=== PATIENT | female | born 1975 | race Caucasian/White ===

== ENCOUNTER 2020-06-09 08:17 | Day surgery (SDC) | payer OTHER, SELFPAY ==
[2020-06-09] VITALS (14 sets, daily range): BP systolic 92–157; BP diastolic 60–95; PULSE 16–106; RESP 12–20; TEMP 36.5–37; O2SAT 94–100; BMI 44.4
--- NOTE | ~2020-06-09 | CT_ITS ---
EXAMINATION: CT abdomen pelvis w con DATE: 06/09/2020 10:00 INDICATION: Right lower quadrant abdominal pain. Nausea. TECHNIQUE: Computed tomography (CT) of the abdomen and pelvis was performed with 100 mL Omnipaque 350 intravenous contrast. Automated exposure control and iterative reconstruction technique were employe d. The dose-length product was 1595.30 mGy-cm. COMPARISON: None. FINDINGS: The visualized portions of the lung bases demonstrate mild atelectasis. No pleural effusion . The heart size is normal. No pericardial effusion. The liver and spleen are normal. The gallbladder is distended and contains gallstones. Gallbladder wall thickening and pericholecystic fat stranding are seen. These findings are consistent with acute cholecystitis. The pancreas, adrenal glands, and k idneys are normal. There are no dilated loops of bowel. The appendix is normal. There is a small volu me of pelvic ascites, which may be physiologic. There is mild periportal lymphadenopathy, likely reac tive. There is mild thoracolumbar spondylosis. IMPRESSION: 1. Acute cholecystitis. Reviewed, dictated and finalized at location A. RIAL LISTER IMPRESSION: 1. Acute cholecystitis.
--- NOTE | ~2020-06-09 | US_ITS ---
US right upper quadrant INDICATION: Right upper quadrant pain. Gallstones. PROCEDURE: Realtime right upper abdominal ultrasound. COMPARISON: No prior studies for comparison. FINDINGS: The pancreas is normal without focal mass or pancreatic ductal dilation. Liver echotexture is increased, consistent with fatty infiltration. There is normal directional flow in the portal ve in. There are gallstones. No gallbladder wall thickening or pericholecystic fluid. Common bile duct ayah ures 6.7 mm. No sonographic Santiago's sign. IMPRESSION: 1: Cholelithiasis. 2: Fatty infiltration of the liver. Reviewed, dictated and finalized at location B. OLOGIST TECHNOLOGIST
[2020-06-09 09:08] LABS: Basophils Absolute Auto 0.1 K/mm3 (0.0-0.1); Basophils Percent Auto 0.5 % (0.2-1.2); Eosinophils Absolute Auto 0.2 K/mm3 (0-0.3); Hematocrit 43.1 % (37.0-47.0); Immature Granulocyte Absolute 0.11 K/mm3 (0.00-0.031); Immature Granulocyte Percent A 0.7 % (0-0.5); Lymphocytes Absolute Auto 1.29 K/mm3 (0.9-3.2); Lymphocytes Percent Auto 8.4 % (18.3-44.2); Mean Corpuscular HGB Conc 34.8 g/dl (32-36); Mean Corpuscular Hemoglobin 30.3 pg (26-34); Mean Corpuscular Volume 87.1 fl (80-100); Mean Platelet Volume 10.4 fl (7.4-10.4); Monocytes Absolute Auto 1.1 K/mm3 (0.1-0.6); Monocytes Percent Auto 7.4 % (2.6-8.5); Neutrophils Absolute Auto 12.6 K/mm3 (1.3-6.7); Platelet Count Result 308 k/mm3 (150-375); Red Blood Count 4.95 M/mm3 (4.2-5.4); Red Cell Distribution Width 11.7 % (11.5-14.5); White Blood Count 15.4 K/mm3 (4.5-10.0)
[2020-06-09 09:14] LABS: Add Urine Microscopic? YES; Appearance Urine Clear (Clear); Bilirubin Urine Negative (Negative); Blood Urine Negative (Negative); Color Urine Yellow (Yellow); Glucose Urine UA 3+ mg/dL (Negative); Ketones Urine Trace mg/dL (Negative); Leukocyte Esterase Ur Negative LEU/UL (Negative); Mucus Urine Heavy /lpf; Nitrate Urine Negative (Negative); Protein Urine 1+ mg/dL (Negative); RBC Urine 0-2 /hpf (0-2); Specific Grav Ur 1.037 (1.001-1.035); Squamous Epithelial Cell Urine Many /hpf (Few); Urobilinogen Urine Negative mg/dL (<2.0); WBC Urine 0-3 /hpf
[2020-06-09 09:18] LABS: Alanine Aminotransferase 31 U/L (4-35); Albumin Level 3.9 g/dL (3.5-5.1); Alkaline Phosphatase 105 U/L (38-126); Anion Gap 9 mmol/L (8-16); Aspartate Amino Transferase 24 U/L (14-36); Bilirubin,Total 0.8 mg/dL (0.2-1.3); Blood Urea Nitrogen 13 mg/dL (7-17); Calcium 9.2 mg/dL (8.4-10.2); Carbon Dioxide 27 mmol/L (22-30); Chloride 97 mmol/L (98-107); Estimated CRCL calculation 201 ml/min; Estimated Glomerular Filt Rate > 60; Glucose 297 mg/dL (65-105); Lipase 42 U/L (23-300); Potassium 4.1 mmol/L (3.4-5.0); Sodium 133 mmol/L (137-145)
[2020-06-09] MEDS: FAMOTIDINE 20 MG/2 ML VIAL IV PUSH (09:46)
--- NOTE | 2020-06-09 09:55 | ED.GENADULT ---
HPI - General Adult General Chief complaint: Abdominal Pain Stated complaint: abd pain Time Seen by Provider: 06/09/20 09:12 Source: patient Mode of arrival: ambulatory Limitations: no limitations History of Present Illness HPI narrative: Patient is a 44-year-old who presents to emergency department for evaluation of periumbilical abdominal pain starting that radiates to the right lower quadrant denies similar occurrence in the past has not taken anything for her symptoms patient notes that she has slight nausea with eating patient denies vaginal urinary or upper respiratory symptoms patient has not been seen for this complaint nor has she had similar occurrence in the past patient thought she might be constipated and took a stool softener and had a normal bowel movement without resolution of symptoms prior to Related Data Home Medications Medication Instructions Recorded Confirmed No Home Medications 06/09/20 06/09/20 Allergies Allergy/AdvReac Type Severity Reaction Status Date / Time No Known Allergies Allergy Verified 06/09/20 09:18 Review of Systems Review of Systems: All systems reviewed & are unremarkable except as noted in HPI and below PMFSH Past Medical History Medical History (Updated 06/09/20 @ 10:56 by Andrez Carty PA-C) Diabetes mellitus Obesity Family History Family History (Updated 11/04/16 @ 13:09 by DOCTOR UNKNOWN) Mother Diabetes mellitus Grandparent Diabetes mellitus Family history of malignant neoplasm of ovary Father Hypertension Family history of cardiovascular disease Social History Social History (Updated 06/09/20 @ 09:59 by Andrez Carty PA-C) Smoking status: Current every day smoker Gender identity (if verbalized by the patient): Female Exam Narrative: Exam Narrative: GENERAL: Well-appearing, obese, and in no acute distress. HEAD: Normocephalic, atraumatic. EYES: PERRLA and EOMI. ENT: Nares clear, no rhinorrhea or epistaxis. Mucous membranes moist. CHEST: Clear to auscultation. No respiratory distress. No wheezes rales or rhonchi HEART: Regular rate and rhythm. No murmur heard. Normal peripheral pulses. ABDOMEN: Soft, periumbilical and right lower quadrant tenderness to palpation, nondistended, normal active bowel sounds. EXTREMITIES: Normal range of motion. No edema. SKIN: Warm, dry, no rash. NEURO: No focal deficits. Alert and oriented x3. Cranial nerves II through XII grossly intact. Normal speech and gait PSYCH: Normal mood and affect. Course Course Emergency Course: Patient found to have acute cholecystitis in the room afebrile nontoxic-appearing no distress patient refused Tylenol or pain medication at this time patient aware of discussion with general surgery Consultations Consultation #1: Discussed case with general surgery who will take the patient to the OR does not recommend antibiotics at this time Date: 06/09/20 Time: 10:55 Vital Signs Vital signs: Vital Signs Temperature 98.3 F 06/09/20 08:33 Pulse Rate 106 H 06/09/20 08:33 Respiratory Rate 16 06/09/20 08:33 Blood Pressure 147/93 H 06/09/20 08:33 Pulse Oximetry 100 06/09/20 08:33 Temperature 98.3 F 06/09/20 08:33 Pulse Rate 93 06/09/20 09:05 Respiratory Rate 16 06/09/20 09:05 Blood Pressure 127/85 06/09/20 09:05 Pulse Oximetry 100 06/09/20 09:05 Medical Decision Making [facility] Narrative Medical decision making narrative: Patient in the room no distress aware of case findings treatment plan diagnosis found to have acute cholecystitis will be taken to the OR. Vital Signs Vital Signs: Vital Signs Temperature 98.3 F 06/09/20 08:33 Pulse Rate 106 H 06/09/20 08:33 Respiratory Rate 16 06/09/20 08:33 Blood Pressure 147/93 H 06/09/20 08:33 Pulse Oximetry 100 06/09/20 08:33 Temperature 98.3 F 06/09/20 08:33 Pulse Rate 93 06/09/20 09:05 Respiratory Rate 16 06/09/20 09:05 Blood Pressure 127/85 06/09/20 09:0
[2020-06-09] MEDS: SODIUM CHLORIDE 0.9% IV 1,000 ML 999 ML IV CONT (10:02)
--- NOTE | 2020-06-09 10:02 | PC.NURSE ---
Pt declines Zofran and acetaminophen at this time. Pt states pain level 5/10 tolerable and states does not need nausea medications at this time
[2020-06-09 11:19] LABS: Hemoglobin A1C 11.4 % (<5.7)
--- NOTE | 2020-06-09 11:30 | PC.NURSE ---
Report called to IMAGERR[facility].
--- NOTE | 2020-06-09 11:43 | PM.IMHP ---
H&P: HPI History of Present Illness Date/Time: 06/09/20 11:43 Chief complaint: abd pain Narrative: Gloria Ge is a 44 year old female Who presented to the emergency department with abdominal pain that started 4 days ago. She states that on morning she began having some pain after eating. Her pain continued throughout the day and has persisted off and on for the past 4 days. Her pain was more persistent today and she felt like she could not handle it anymore therefore she presented to the emergency department. She has had some nausea but denies any fevers or chills. She has not eaten anything today. She has never experienced pains like this in the past. She does have a history of diabetes, but has not been on medications for more than 6 months and does not have a current primary care provider. Review of Systems Review of Systems: All systems reviewed & are unremarkable except as noted in HPI and below Constitutional: Constitutional: Denies chills and Denies fever(s) Eyes: Eyes: Denies change in vision ENT: Denies hearing loss, Denies neck pain and Denies sore throat Cardiovascular: Cardiovascular: Denies chest pain and Denies dyspnea Respiratory: Respiratory: Denies cough, Denies dyspnea and Denies wheezing Gastrointestinal: Gastrointestinal: Reports as per HPI Genitourinary: Genitourinary: Denies hematuria and Denies dysuria Musculoskeletal: Musculoskeletal: Denies arthralgias, Denies joint swelling and Denies neck pain Allergic/Immunologic: Allergic/Immunologic: Denies wheezing PMFSH Past Medical History Medical History (Updated 06/09/20 @ 11:49 by Dom Betancourt DO) Diabetes mellitus Hypertension, essential, benign Obesity Family History Family History Mother Diabetes mellitus Grandparent Diabetes mellitus Family history of malignant neoplasm of ovary Father Hypertension Family history of cardiovascular disease Social History Social History (Updated 06/09/20 @ 11:47 by Dom Betancourt DO) Smoking packs per day: 0.5 Smoking cigarettes per day: 10.0 Smoking status: Current every day smoker Tobacco type: cigarettes Alcohol intake: never Substance use: never Additional occupation/education comments: [employer] Gender identity (if verbalized by the patient): Female Meds Home Medications and Allergies Home Medications Medication Instructions Recorded Confirmed Type No Home Medications 06/09/20 06/09/20 History Allergies Allergy/AdvReac Type Severity Reaction Status Date / Time No Known Allergies Allergy Verified 06/09/20 09:18 Vital Signs Vital Signs - 24 hr 06/09/20 08:33 06/09/20 09:05 06/09/20 11:00 Temperature 36.8 C 36.9 C Pulse Rate 106 H 93 16 L Respiratory Rate 16 16 16 Blood Pressure 147/93 H 127/85 155/95 H Pulse Oximetry 100 100 100 06/09/20 11:34 Temperature 36.7 C Pulse Rate 92 Respiratory Rate 18 Blood Pressure 149/91 H Pulse Oximetry 99 Exam Const: General: alert; No acute distress Orientation/consciousness: patient oriented x3 Limitations: no limitations HENMT: Head: normocephalic and atraumatic Ears: hearing grossly normal bilaterally General nose exam: Normal external nose present and Normal nares present Mouth: Yes Normal oral and palatal mucosa present and Yes moist mucous membranes Eyes: General: appearance normal, both eyes and all related structures Conjunctivae: conjunctivae normal Sclera: sclerae normal Pupils: Equal, round and reactive pupils present EOM: EOMs intact bilaterally Neck: Neck: normal visual inspection, full ROM, no lymphadenopathy, supple and no JVD Lymphatic: no lymphadenopathy noted Chest: Chest palpation & inspection: normal inspection of the chest Resp: Effort & Inspection: normal respiratory effort and able to speak in complete sentences Auscultation: clear to auscultation bilaterally Perc
--- NOTE | 2020-06-09 11:51 | WPDHPUPDATE1 ---
History and Physical Update Update Date/Time: 06/09/20 11:51 History and Physical has been reviewed, including an updated exam of the patient. There are NO changes in the patient's condition. Risks, benefits, and alternatives have been discussed and questions answered. Patient agrees to proceed with procedure.
--- NOTE | 2020-06-09 11:58 | WPDANESEPPF ---
Anes - Initial Pre Proc Eval Procedure: Operation Date: 06/09/20 13:15 Proposed Procedures p Laparoscopic Cholecystectomy, Possible Open, Possible Intraoperative Cholangiogram - Dom Betancourt DO Date/Time: 06/09/20 11:58 Surgeon: Dom Betancourt DO Pre Op Diagnosis: abd pain Patient Data Age: 44 Gender: F Height: 5 ft 6 in Weight: 125 kg Last Vital Signs Temp 36.7 C 06/09/20 11:34 Pulse 92 06/09/20 11:34 Resp 18 06/09/20 11:34 BP 149/91 H 06/09/20 11:34 Pulse Ox 99 06/09/20 11:34 Allergies Allergy/AdvReac Type Severity Reaction Status Date / Time No Known Allergies Allergy Verified 06/09/20 11:52 Home Medications Medication Instructions Recorded Confirmed Type No Home Medications 06/09/20 06/09/20 History Laboratory Tests 06/09/20 06/09/20 06/09/20 08:58 08:58 08:58 WBC 15.4 K/mm3 H K/mm3 (4.5-10.0) RBC 4.95 M/mm3 M/mm3 (4.2-5.4) Hgb 15.0 g/dL g/dL (12.0-15.0) Hct 43.1 % % (37.0-47.0) MCV 87.1 fl fl (80-100) MCH 30.3 pg pg (26-34) MCHC 34.8 g/dl g/dl (32-36) RDW 11.7 % % (11.5-14.5) Plt Count 308 k/mm3 k/mm3 (150-375) MPV 10.4 fl fl (7.4-10.4) Immature Gran % (Auto) 0.7 % H % (0-0.5) Neut % (Auto) 82.0 % H % (45.5-73.1) Lymph % (Auto) 8.4 % L % (18.3-44.2) [place] % (Auto) 7.4 % % (2.6-8.5) Eos % (Auto) 1.0 % % (0-4.4) Baso % (Auto) 0.5 % % (0.2-1.2) Lymph # (Auto) 1.29 K/mm3 K/mm3 (0.9-3.2) [place] # (Auto) 1.1 K/mm3 H K/mm3 (0.1-0.6) Eos # (Auto) 0.2 K/mm3 K/mm3 (0-0.3) Baso # (Auto) 0.1 K/mm3 K/mm3 (0.0-0.1) Abs Immat Gran (auto) 0.11 K/mm3 H K/mm3 (0.00-0.031) Absolute Neuts (auto) 12.6 K/mm3 H K/mm3 (1.3-6.7) Absolute Nucleated RBC 0.0 K/mm3 K/mm3 (0.0-0.012) Nucleated RBC % 0.0 % % (0.0-0.2) Sodium 133 mmol/L L mmol/L (137-145) Potassium 4.1 mmol/L mmol/L (3.4-5.0) Chloride 97 mmol/L L mmol/L (98-107) Carbon Dioxide 27 mmol/L mmol/L (22-30) Anion Gap 9 mmol/L mmol/L (8-16) BUN 13 mg/dL mg/dL (7-17) Creatinine 0.40 mg/dL L mg/dL (0.7-1.0) Estim Creat Clear Calc 201 ml/min ml/min Estimated GFR > 60 (59 - ) Glucose 297 mg/dL H mg/dL (65-105) Hemoglobin A1c 11.4 % H % (<5.7) Calcium 9.2 mg/dL mg/dL (8.4-10.2) Total Bilirubin 0.8 mg/dL mg/dL (0.2-1.3) AST 24 U/L U/L (14-36) ALT 31 U/L U/L (4-35) Alkaline Phosphatase 105 U/L U/L (38-126) Total Protein 8.0 g/dL g/dL (6.3-8.2) Albumin 3.9 g/dL g/dL (3.5-5.1) Lipase 42 U/L U/L (23-300) Urine Color Urine Appearance Urine pH Ur Specific [place] Urine Protein Urine Glucose (UA) Urine Ketones Ur Blood (Man) Urine Nitrate Urine Bilirubin Urine Urobilinogen Leukocyte Esterase Rfl Urine RBC Urine WBC Ur Squamous Epith Cells Hyaline Casts Urine Mucus 06/09/20 09:04 WBC RBC Hgb Hct MCV MCH MCHC RDW Plt Count MPV Immature Gran % (Auto) Neut % (Auto) Lymph % (Auto) [place] % (Auto) Eos % (Auto) Baso % (Auto) Lymph # (Auto) [place] # (Auto) Eos # (Auto) Baso # (Auto) Abs Immat Gran (auto) Absolute Neuts (auto) Absolute Nucleated RBC Nucleated RBC % Sodium Potassium Chloride Carbon Dioxide Anion Gap BUN Creatinine Estim Cre
[2020-06-09] MEDS: LACTATED RINGERS 1,000 ML 30 ML IV CONT ×2 (12:08→15:04)
[2020-06-09 12:26] LABS: Glucose Point of Care 230 (65-105)
[2020-06-09] MEDS: ceFAZolin 3 GM/D5W 100 ML 100 ML IVPB (13:25)
--- NOTE | 2020-06-09 15:00 | PM.PROC ---
Procedure Note - Detailed Date of procedure: 06/09/20 Pre-op diagnosis: Acute/chronic calculous cholecystitis Post-op diagnosis: same Procedure performed: Laparoscopic Cholecystectomy Description of procedure: Procedure as well as risks, benefits, and alternatives were discussed with patient. Written consent was obtained and placed in chart prior to procedure. The patient was brought back to surgical suite. Patient was placed in supine position on operating table. Time-out was done to confirm patient and procedure. Patient was then intubated by the anesthesia department. Abdomen was prepped and draped in sterile fashion using chlorhexidine prep. 0.25% bupivacaine with epinephrine was infiltrated at each site of incision. A 5 millimeter incision was made near the umbilicus, and a 5 millimeter Optiview trocar was advanced through the abdominal layers under direct visualization. Once inside the abdominal cavity, carbon dioxide was insufflated to create a pneumoperitoneum. The camera was inserted and the abdomen was inspected. No immediate abnormalities were identified. The patient was placed in reverse Trendelenburg position and rotated slightly to the left. An 11 millimeter incision was made in the subxiphoid region, and an 11 millimeter trocar was inserted under direct visualization. Two 5 millimeter incisions were made in the right upper quadrant, and two 5 millimeter trocars were inserted under direct visualization. The gallbladder was identified and grasped at the fundus and retracted superiorly. It was then grasped at the infundibulum retracted laterally. Careful dissection around the neck of the gallbladder was performed using blunt dissection with a [place] grasper and hook electrocautery. The cystic duct was identified, and a window was created behind it. The cystic artery was also identified and a window was created behind it. The critical view of safety was identified, visualizing the cystic duct running directly into the neck of the gallbladder, and the cystic artery running directly into the wall of the gallbladder. A 5 millimeter clip print developer automatic was then used to place 2 clips proximally and 1 clip distally on both the cystic duct and cystic artery. They were then both transected using endoscopic scissors. Once safely away from the gold hepatitis, the gallbladder was dissected free from the liver bed using hook electrocautery. Hemostasis was achieved along the way. The gallbladder was removed completely and then removed through the subxiphoid port. The liver bed was then inspected. Hemostasis appeared adequate, and our clips appeared secure. The area was gently irrigated with sterile saline. No other abnormalities were seen. The patient was flattened out in bed, and 1 final inspection was made around the abdominal cavity. The subxiphoid port was removed and the remaining ports were then removed under direct visualization, the camera was removed, and the pneumoperitoneum was released. The fascia of the subxiphoid port was approximated using 0 Vicryl [id number] suture x2. The skin of the incisions was approximated using 4-0 Monocryl subcuticular sutures. Exofin glue was applied on top. The patient was then awakened from anesthesia, extubated, and transferred to recovery. Anesthesia: GETA and local (0.25% bupivicaine with epi) Surgeon: Dom Betancourt DO Estimated blood loss (mL): 20 Drains: No Packing: No Pathology: yes Complications: No immediate complications Condition: stable (Patient tolerated procedure well, and is currently resting comfortably in recovery.) Disposition: same day Findings: This is a 44-year-old woman who presented to the emergency department this morning with right upper quadrant abdominal pain for the past 5 days. She has had worsening pain that became constant this morning. She denies any fevers or chills. Workup in the emergency department showed an elevated white blood count and CT showed evidence
[2020-06-09 15:10] LABS: Glucose Point of Care 267 (65-105)
--- NOTE | 2020-06-09 15:17 | SUR.PHASEI ---
1515 - dr. vernon aware of accucheck of 267. no orders received at this time
[2020-06-09] MEDS: fentaNYL CITRATE INJ (*CRX) 100 MCG/2 ML VIAL 25 MCG IV PUSH ×6 (15:32→15:51)
[2020-06-09] MEDS: ONDANSETRON INJ 4 MG/2 ML VIAL IV PUSH (16:16)
[2020-06-09] MEDS: diphenhydrAMINE HCl INJ 50 MG/ML VIAL 12.5 MG IV PUSH (16:37)
== END 2020-06-09 17:56 | disposition home or self-care (01) ==
LOC: ANHED 10:56 → ANHSURGERY 11:06
PROVIDERS: Emergency Medicine Emergency Medical Services; Emergency Provider Emergency Medicine; Visit Provider Surgery
PROC: 0FT44ZZ Resection of Gallbladder, Percutaneous Endoscopic Approach (ICD-10-PCS; CPT 47562; principal; 2020-06-09 13:15)
DX: K80.00 Calculus of gallbladder with acute cholecystitis without obstruction (principal); E11.65 Type 2 diabetes mellitus with hyperglycemia; I10 Essential (primary) hypertension; E66.01 Morbid (severe) obesity due to excess calories; Z68.41 Body mass index [BMI] 40.0-44.9, adult; F17.210 Nicotine dependence, cigarettes, uncomplicated
CPT/HCPCS: 47562; 36415; 74177; 76705; 80053; 81001; 81025; 83036; 83690; 85025; 88304; 96361; 96374; 96375; 99285; J0131; J0330; J0690; J1100; J1170; J1200; J2250; J2405; J2704; J2710; J3010; J7030; J7120; Q9967

== ENCOUNTER → 2021-03-10 02:20 | Outpatient (CLI) | payer OTHER, SELFPAY ==
[2021-03-10 19:54] LABS: SARS-CoV-2 RNA PCR Negative
== END ==
PROVIDERS: PCP Family Medicine; Visit Provider Physician Assistant
DX: R05 Cough (principal); Z20.822 Contact with and (suspected) exposure to COVID-19
CPT/HCPCS: C9803; U0003; U0005

== ENCOUNTER → 2021-08-04 02:38 | Outpatient (CLI) | payer OTHER, SELFPAY ==
[2021-08-04 19:07] LABS: SARS-CoV-2 RNA PCR Positive
== END ==
PROVIDERS: PCP Family Medicine; Visit Provider Physician Assistant
DX: U07.1 COVID-19 (principal)
CPT/HCPCS: C9803; U0003; U0005

== ENCOUNTER 2024-01-27 11:04 | Outpatient (CLI) | payer BC, SELFPAY ==
--- NOTE | ~2024-01-27 | XR_ITS ---
XR abdomen obstructive series Ordering provider: Yessenia Vinson PA-C History: . R15.9 - Full incontinence of feces . Comparison: None. FINDINGS: BOWEL: Air-fluid levels seen in the right upper quadrant. No significant dilatation seen. Most likely Nonobstructive bowel gas pattern. Follow-up advised. ORGANOMEGALY: None. SIGNIFICANT PATHOLOGIC CALCIFICATIONS: None. OTHER: Degenerative changes of the spine. No free air is seen under the diaphragm. IMPRESSION: Air-fluid levels with no dilatation of the bowel. Most likely due to diarrhea. Follow-up advised. Cli nical correlation advised. Reviewed, dictated and finalized at location A. IMPRESSION: Air-fluid levels with no dilatation of the bowel. Most likely due to diarrhea. Follow-up advised. Clinical correlation advised.
== END 2024-01-27 11:05 ==
PROVIDERS: PCP Student in an Organized Health Care Education/Training Program; Visit Provider Student in an Organized Health Care Education/Training Program
DX: R19.5 Other fecal abnormalities (principal)
CPT/HCPCS: 74019

== ENCOUNTER 2024-08-16 14:14 | Outpatient (CLI) | payer BC, SELFPAY ==
--- OUTSIDE RECORDS SUMMARY | 2024-08-16 14:23 | XMS_ITS | Continuity of Care Document ---
Author Organization [facility] Address [address] [place] [address] Phone Care Team Providers Care Boat Operator Name Role Phone Jarod Stacy MD Unavailable Unavailable Medications Medication Instructions Dosage Effective Dates (start - s top) Status Comments ZYRTEC 10MG TABS 1 QD - Active Advance Directives Directive Yes / No Effective Date File Name No Information Encounters Encounter Description Practice Location Reason(s) For Visit Diagnoses Date Provider Providers Copied on Encounter [facility], [address], [place], [place], [id number], tel:[phone] [facility] No Information Regis Olivera. [address] [place] [address], [id number], . tel:[phone] [facility], [address], [place], [id number], tel:[phone] [facility] URTICARIA NEC Regis Olivera. [address] [place] [address], [id number], . tel:[phone] Family History Family Member Type Diagnosis Age At Onset No Information Payers Payer name Insurance type Covered libertarian ID Authoriza tion(s) No Information Social History Type Description Quantity Date Captured Comments Sex Female Smoking Status No Information Chief Complaint And Reason For Visit No Information Reason For Referral Reason For Referral No Information History Of Present Illness Encounter Date Complaint History Of Prese nt Illness No Information Functional Status Date Functional Assessmen t No Information Instructions Date Instruction Additional Infor mation No Information Assessments Type Assessment Date No Information Patient Care Teams Name Effective Dates (start - stop) Status Members No Information
--- OUTSIDE RECORDS SUMMARY | 2024-08-16 14:23 | XMS_ITS | Data Portability ---
Author Organization [facility], [facility] Address [address] [place] [address] Assessment No assessment recorded. Plan of Treatment Reminders Order Date Submit Date Provider Last Modified By Organization Details Last Modified Time Details Appointments None record ed. Lab None record ed. Referral None record ed. Procedures None record ed. Surgeries None record ed. Imaging None record ed. Medication Orders None record ed. Patient TargetsNo targets recorded. Patient InstructionsNo instructions recorded. Reason for Referral None Reported. 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) w/o abn findings;R ecorded Elsewhere: No Locatio n: [facility] rce: EHR Chroni c: N Practice ID: [id number] Billa ble Time: 10:45:00 AM Not Available [facility] 0 16:00:38 Screening for malignant neoplasm of cervix Active 2017 Screening for malignant neoplasms of the cervix;Rec orded Elsewhere: No Locatio n: [facility] rce: EHR Chroni c: N Practice ID: [id number] Billa ble Time: 10:45:00 AM Not Available [facility] 0 16:00:38 Finding of body mass index 245502300 Active 2016 Body mass index (BMI) 40.0-44.9, adult;Arden rded Elsewhere: No Locatio n: [facility] rce: EHR Chroni c: N Practice ID: 0001 Billa ble Time: 02:00:00 PM Not Available [facility] 0 16:00:38 Abscess of vulva 28508445 Active 2016 Abscess of vulva;Arden rded Elsewhere: No Locatio n: [facility] rce: EHR Chroni c: N Practice ID: [id number] Billa ble Time: 02:00:00 PM Not Available [facility] 0 16:00:38 Non-toxic uninodula r goiter 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 Thyroid nodule;Rec orded Elsewhere: No Locatio n: [facility] rce: EHR Chroni c: N Practice ID: [id number] Billa ble Time: 02:00:00 PM Not Available [facility] 0 16:00:38 Abscess of Bartholin 's gland 58108262 Active 2018 Abscess of Bartholin' s gland;Arden rded Elsewhere: No Locatio n: [facility] rce: EHR Chroni c: N Practice ID: [id number] Billa ble Time: 08:30:00 AM Not Available [facility] 0 16:00:38 Cyst of vulva 21238268 Active 2018 Vulvar cyst;Recor ded Elsewhere: No Locatio n: [facility] rce: EHR Chroni c: N Practice ID: [id number] Billa ble Time: 08:30:00 AM Not Available [facility] 0 16:00:[address] Concept Active 2016 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 Procedures Surgical History Date Name Laterality Status Provider Name and Address Organization Details Recorded Time 0 Bartholin Cyst Drainage completed Gary Ramirez MD [address], [place], [address], [place] [facility] 11/23/2019 15:44:28 Imaging Results None recorded. Procedure Notes None recorded. Medical Equipment None Reported. Medications Name Sig Start Date Stop Date Status Note LastModified by Organization Details LastModified Time cephalexi n 250 mg capsule take 1 capsule by oral route every 6 hours active Prescrib ed Elsewher e: Yes Loca tion: Juanito iverson [facility] odify By: german Reyeste r DateTime : 03/19/20 19 09:00:00 AM Not Available Not Available Not Available Diflucan 150 mg tablet take 1 tablet by oral route once 10/25 completed Prescrib ed Elsewher e: No Locat ion: Juanito iverson [facility] odify By: kurt Iverson ncounter DateTime : 11/01/19 18 10:11:01 AM Not Available Not Available Not Available doxycycli ne monohydra te 100 mg tablet take 1 tablet by oral route 2 times every day 10/25 completed Prescrib ed Elsewher e: No Locat ion: Juanito iverson [facility] odify By: kurt Iverson ncounter DateTime : 10/27/19 18 10:45:00 AM Not Available Not Available Not Available cefadroxi l 500 mg capsule take 1 capsule by oral route 2 times every day 03/19 completed Prescrib ed Elsewher e: No Locat ion: Juanito iverson [facility] odify By: german Encounte r DateTime : 10/26/19 08:30:00 AM Not Available Not Available Not Available Metrogel Vaginal 0.75 % (37.5 mg/5 gram) insert 1 applicat orful by vaginal route every day at bedtime for 5 nights 10/26 completed Prescrib ed Elsewher e: No Locat ion: Juanito iverson [facility] odify By: german Reyeste r DateTime : 09/02/19 02:36:31 PM Not Available Not Available Not Available Uro-Mag 84.5 mg magnesium (140 mg magnesium oxide) capsule active Prescrib ed Elsewher e: Yes Loca tion: Juanito iverson [facility] odify By: german Reyeste r DateTime : 03/19/20 19 09:00:00 AM Not Available Not Available Not Available nystatin- triamcino lone 100,000 unit/g-0. 1 % topical cream apply by topical route every day to the vaginal area in the morning and evening 03/19 completed Prescrib ed Elsewher e: No Locat ion: Juanito iverson [facility] odify By: german Perez r DateTime : 11/04/19 19 11:29:47 AM Not Available Not Available Not Available amoxicill in 875 mg-potass ium clavulana te 125 mg tablet 11/14 completed Not Available Not Available Not Available Januvia 25 mg tablet 10/26 completed Prescrib ed Elsewher e: Yes Loca tion: Juanito iverson [facility] odify By: german Perez r DateTime : 08/31/19 17 02:00:00 PM Not Available Not Available Not Available tramadol ER 300 mg capsule 24 hr,extend ed release take 1 capsule by oral route every day active Prescrib ed Elsewher e: Yes Loca tion: Juanito iverson [facility] odify By: german Perez r DateTime : 03/19/20 19 09:00:00 AM Not Available Not Available Not Available Vitals Date Recorded Body height Body mass index (BMI) Body weight Systolic blood pressure Diastolic blood pressure Provider Name and Address Organization Details Last Updated DateTime 11/30/2019 167.64 cm 44.9 kg/m2 228669.6 8 g 138 mm[Hg] 85 mm[Hg] [facility] 0 12:06:48 Date Recorded Body height Body mass index (BMI) Body weight Systolic blood pressure Diastolic blood pressure Provider Name and Address Organization Details Last Updated DateTime 11/15/2019 167.64 cm 45 kg/m2 598563.2 7 g 162 mm[Hg] 100 mm[Hg] [facility] 0 11:05:03 Date Recorded Body height Body mass index (BMI) Body weight Systolic blood pressure Diastolic blood pressure Provider Name and Address Organization Details Last Updated DateTime 11/23/2019 167.64 cm 45.4 kg/m2 632260.4 6 g 140 mm[Hg] 88 mm[Hg] [facility] 0 14:31:45 Social History None recorded. Functional Status None recorded. Mental Status None recorded. Family History Relationship Description Onset Age of this Age Resolved Age Notes LastModified by Organization Details LastModified Time Mother Diabetes mellitus [email or web address] Not available 2019 11:06:09 Father Hypertensive disorder [email or web address] Not available 2019 11:06:16 Paternal Grandmother Carcinoma of uterine cervix, invasive [email or web address] Not available 2019 11:06:32 Maternal Grandfather Diabetes mellitus [email or web address] Not available 2019 11:06:43 Notes:Father: Hypertension M aternal grandfather: Diabetes mellitus Mother: Diabetes mellitus Paternal grandmother: Cancer, cervical Medical History Condition Response Diabetes Y Hypertension Y High Cholesterol Y Gynecological History Statement/Question Response Date of LMP 10/16/2019 Obstetrics History GPAL:G 0 P 0 0 0 0 Past Encounters Encounter ID Performer Location Encounter Start Date Encounter Closed Date Diagnosis/Indication Diagnosis SNOMED-CT Code Diagnosis ICD10 Code Diagnosis Note [id number] Gary Ramirez MD [facility] [address],[place] [address] 11/15/2019 10:54:35 11/15/2019 11:49:00 Cyst of Bartholin's gland duct 56756940 N75.0 this patient is a 43-year-ol d female with a Bartholin' s cyst. She is going to return for incision and drainage of the Bartholin' s gland cyst. [id number] MD Shorty Kelley [address],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 This time the Bartholin' s gland had old blood in large quantities . The contents were like chocolate syrup. I expressed concern to the patient about malignancy of the gland. I informed her about the procedure to remove the gland entirely. She understand s my concern. She will return in 1 week to discuss further. [id number] MD Shorty Kelley [address],[place] [address] 11/30/2019 11:51:47 11/30/2019 13:55:04 Abscess of Bartholin's gland 77028532 N75.1 This patient is a 44-year-ol d female who presents for follow-up onBartholi n cysts/absc ess.She has recurrent cyst/absce sses of the Bartholin' s gland.1 week ago we drained Rosa burnette'sabs cess that had chocolate syrup/old bloodwithi n the cyst cavity. It drained significan t amount ofdark old blood.We talked about this today. Thearea was examined. There is no inflammati on or swelling at the site anymore. The stitches that wereholdin g theincisio n site open are still present. It appears to be open.It is not bleedingbr ight red blood.In fact, there is no bleeding at all.We talked aboutthe concern of having blood within this cyst.I have concern about possible malignancy . We talked about itand agreed that we would observe this and I would examine it again in 3 months. Health Concerns Section Related Observation LastModified by Organization Detai ls LastModified Time None Recorded Concern Status LastModified by Organization Details LastModified Time None Recorded Advance Directives Directive None Recorded Payers Encounter Date Sequence Insurance Name Policy Number Policy Holly Covered Member ID Holly Member ID Guarantor Name 11/15/2019 1 [facility] (O) [id number] [facility] [id number] [facility] 11/23/2019 1 [facility] (PPO) [id number] [facility] [id number] 1 [facility] 11/30/2019 1 [facility] (O) [id number] [facility] [id number] 1 [facility] Notes Date Note Type Note Provider Name and Address Organization Details Recorded Time 11/15/2019 text/html this patient is a 43-year-old female with a history of Bartholin's abscess. Again she has a fullness and masslike structure in the area of the right Bartholin's gland. She has no tenderness. She is without any symptoms. She she can tell that it is there only. Gary Ramirez MD [address], [place], [address], [facility] 11/15/2019 11:55:48 11/23/2019 text/html . Her uncomplica vincent he OB ultrasoundMacon patient's 43-year-old female with recurrent Bartholin's abscess. Gary Ramirez MD [address], [place], [address], [facility] 11/23/2019 15:46:19 11/30/2019 text/html This patient is a 44-year-old female who presents for follow-up on Bartholin cysts/abscess. She has recurrent cyst/abscesses of the Bartholin's gland. 1 week ago we drained a right Bartholin's abscess that had chocolate syrup/old blood within the cyst cavity. It drained significant amount of dark old blood. We talked about this today. The area was examined. There is no inflammation or swelling at the site anymore. The stitches that were holding the incision site open are still present. It appears to be open. It is not bleeding bright red blood. In fact, there is no bleeding at all. We talked about the concern of having blood within this cyst. I have concern about possible malignancy. We talked about it and agreed that we would observe this and I would examine it again in 3 months. Gary Ramirez MD [address], [place], [address], [facility] 11/30/2019 12:55:37 OBGyn Episode No OBEpisode recorded.
[2024-08-16 15:03] LABS: Influenza A QL RT-PCR Positive (Negative); Influenza B QL RT-PCR Negative (Negative); RSV RNA, RT-PCR Negative (Negative); SARS-CoV-2 RNA PCR Negative (Negative)
== END 2024-08-16 14:15 | disposition home or self-care (01) ==
LOC: ANHLAB 14:17
PROVIDERS: PCP Family Medicine; Visit Provider Family Medicine
DX: J06.9 Acute upper respiratory infection, unspecified (principal); Z20.822 Contact with and (suspected) exposure to COVID-19
CPT/HCPCS: 87637